=== PATIENT | male | born 1985 | race Caucasian/White ===

== ENCOUNTER 2024-04-26 10:29 | Emergency (ER) | payer BC, OTHER ==
[2024-04-26 10:43] VITALS: RESP 18; TEMP 98
--- NOTE | 2024-04-26 11:22 | ERPHSYRPT ---
- History of Present Illness Time Seen by Provider: 04/26/24 10:50 Source: patient Exam Limitations: no limitations Patient Subjective Stated Complaint: PT states "I have an infection in my lower teeth all accross the front." Triage Nursing Assessment: PT presented alert and oriented X3, skin pwd. Pt ambulates with an upright steady gait, able to speak in clear full sentences.Pt lower teeth has dental caries noted. Timing/Duration: today Severity: mild Associated Symptoms: denies symptoms Allergies/Adverse Reactions: Penicillins Allergy (Severe, Verified 04/26/24 10:43) Swelling Hx Tetanus, Diphtheria Vaccination/Date Given: No Hx Influenza Vaccination/Date Given: No Hx Pneumococcal Vaccination/Date Given: No Immunizations Up to Date: No Travel Risk - International Travel Have you traveled outside of the country in past 3 weeks: No - Emerging Infectious Disease Are you exhibiting symptoms associated with any current EIDs: No - Review of Systems Eyes: No Symptoms Ears, Nose, & Throat: No Symptoms Respiratory: No Symptoms Cardiac: No Symptoms Abdominal/Gastrointestinal: No Symptoms, Appetite Changes Musculoskeletal: No Symptoms Skin: No Symptoms Neurological: No Symptoms Psychological: No Symptoms Endocrine: No Symptoms Hematologic/Lymphatic: No Symptoms Immunological/Allergic: No Symptoms - Past Medical History Pertinent Past Medical History: No Neurological History: No Pertinent History ENT History: Other (false dentures) Respiratory History: No Pertinent History Endocrine Medical History: No Pertinent History Musculoskeletal History: No Pertinent History - Past Surgical History Past Surgical History: No - Social History Smoking Status: Current every day smoker How long have you smoked: years Exposure to second hand smoke: Yes Drug Use: none - Social Determinants of Health Will the patient participate in the screening: Yes Do you worry about a steady place to live?: No Do you have any problems with any of the following?: No known problems In the past 12 months,have you had to go without utilities?: No Transportation Issues: No Has anyone in your support network made you feel unsafe?: No Have you or anyone in your house had to go without enough: No - Nursing Vital Signs Nursing Vital Signs: Initial Vital Signs Temperature 98.0 F 04/26/24 10:39 Pulse Rate 101 H 04/26/24 10:39 Respiratory Rate 18 04/26/24 10:39 Blood Pressure 169/109 04/26/24 10:39 O2 Sat by Pulse Oximetry 99 04/26/24 10:39 Pain Scale Pain Intensity 7 - Physical Exam General Appearance: no apparent distress Eye Exam: PERRL/EOMI Ears, Nose, Throat Exam: other (multiple dental caries noted with extractions of the other teeth, the incisors have significant cavities) Respiratory Exam: normal breath sounds Cardiovascular Exam: regular rate/rhythm Gastrointestinal/Abdomen Exam: soft, normal bowel sounds Back Exam: normal inspection Extremity Exam: normal inspection Neurologic Exam: alert, oriented x 3 SpO2: 99 - Progress Progress Note: viscous lidocaine patient was informed of the need for follow-up with his dentist he will be discharged home with antibiotics and viscous lidocaine 04/26/24 11:19 Medical Desision Making - Discussion of managment Agreed on:: need for follow-up - Departure Clinical Impression: Dental caries Condition: Good Critical Care Time: No Referrals: DOCTOR,NO FAMILY [Primary Care Provider] - Follow up/PCP as directed Prescriptions: Clindamycin HCl 150 mg [Cleocin 150 mg Capsule] 2 cap PO TID #63 cap
[2024-04-26 11:38] VITALS: BP 143/96; PULSE 68; O2SAT 97
== END 2024-04-26 11:40 | disposition home or self-care (01) ==
LOC: ED 10:29
DX: K02.9 Dental caries, unspecified (principal); K08.89 Other specified disorders of teeth and supporting structures; Z79.899 Other long term (current) drug therapy; Z72.0 Tobacco use
CPT/HCPCS: 99281